=== PATIENT | female | born 1950 | race Caucasian/White ===

== ENCOUNTER → 2024-04-14 09:55 | Outpatient (REF) | payer OTHER, SELFPAY | LOC: HWWDC 09:55 | PROVIDERS: ATTENDING PHYSICIAN Nurse Practitioner Adult Health | DX: Z78.0 Asymptomatic menopausal state (principal); Z12.31 Encounter for screening mammogram for malignant neoplasm of breast | CPT/HCPCS: 77063; 77067; 77080 ==

== ENCOUNTER 2024-12-09 16:53 | Emergency (ER) | payer OTHER, SELFPAY ==
[2024-12-09 17:04] VITALS: BP 123/80
[2024-12-09 19:25] VITALS: BP 129/79
--- NOTE | 2024-12-09 19:32 | EDRN ---
left lateral contusion buttocks and thigh. Pt has increased pain ambulating. Pt can make it 2 steps with walker. Pt has multiple abrasions. Pt alert and oriented. Abrasions nose, L elbow, L knee L le surface hand.
[2024-12-09] MEDS: MOTRIN 600 MG PO (19:45)
[2024-12-09 20:00] VITALS: BP 132/62
[2024-12-09] MEDS: ADACEL 0.5 ML IM (20:27)
[2024-12-09 21:28] VITALS: BP 133/67
[2024-12-09] MEDS: NORCO 5/325 1 TABLET PO ×2 (22:10→22:14)
--- NOTE | 2024-12-10 00:47 | ED.MUSCINJ ---
HPI-Injury
General
Chief Complaint: Fall
Source: patient
Time Seen by Provider: 12/09/24 19:04
Nursing documentation reviewed up to this point in time: agreed with
History of Present Illness-Injury
Is this injury a work related problem?: No
Is pt an associate of [facility]?: No
Initial Injury comments:
Patient was walking dog, dog ran after school bus pulling patient along. SHe fell onto her left side. No LOC. Hit chin on pavement. Complains of pain to her left hip. Unable to get up on own. Helped up by neighbor who then drove her to the ED.
Incident occurred just [employer].
Injury Course
Orders/Labs/Results
Orders:
Orders
12/09/24 17:10
CR Hip - LT w/wo Pel 2-3 Vw* Urgent
Comment:
Reason For Exam: fall, pain
Include a pelvis x-ray?: Yes
12/09/24 19:23
Ibuprofen [Motrin] 600 mg PO NOW STA
Tetanus/Diphth/Acelpertussis [Adacel] 0.5 ml IM .ONCE ONE
12/09/24 19:41
Lower Ext Left wo Contrast CT [CT Lower Ext W/o Iv Cont Lt] Urgent
Comment:
Reason For Exam: fall, attn left hip
12/09/24 22:00
Hydrocodone 5/APAP 325 [[place] 5/325] 1 tablet PO NOW STA
12/09/24 22:08
Hydrocodone 5/APAP 325 [[place] 5/325] 1 tablet PO NOW STA
Update Note
Update Note:
Patient to ED after all while walking dog. Complains of left hip pain. No fracture noted on xray but she continues to struggle wth weight bearing, Sent fo CT of hip which revealed nondisplaced intra articular fracture of the left pubo-acetabular
junction and fx of left inferior pubic ramis. Dr. Martin notified of CT findings. Ok for discharge with walker, toe touch weight bearing LLE x 4 weeks. SHe is able to ambulate safely with walker. Will discharge home and she will follow up in
office with Dr. Martin.
ED Attending Note
-
Portions of this chart may have been created with voice recognition software.� Occasional wrong word or��sound alike� substitutions may have occurred due to the inherent limitations of voice recognition software.
Discharge Plan
Departure
Patient Disposition: Home (Routine Discharge)
Date of Disposition: 12/09/24
Time of Disposition: 22:00
Patient with high blood pressure during this ER visit?: No
Condition: Good
Covid-19: Not Applicable
Discharge Problem:
Fracture of superior pubic ramus, Closed fracture of inferior pubic ramus
Instructions: Pelvic fracture, Ibuprofen, Cold therapy for pain
Prescriptions:
New
hydrocodone-acetaminophen 5-325 mg tablet
1 tab PO Q4H PRN (Reason: Pain) Qty: 20 0RF
No Action
atorvastatin 10 MG tablet
10 mg PO DAILY
Restasis 0.05% Ophthalmic Emulsion:
1 DROP BID
Vitamin D
1,000 0 unit PO DAILY
Referrals:
Jacquelyn May MD [Family Provider] -
Andrew Martin MD [Active] - Call in 1-3 days for appt
Activity Restrictions/Additional Instructions:
Take 400mg ibuprofen every 6 hours as needed for pain. Take pain medication in between doses of ibuprofen if needed.
Interventions
Interventions:
*Risk Screen - Suicide Last Done: 12/09/24 17:04
*General Assessment Last Done: 12/09/24 17:04
*Neglect/Abuse Screening Last Done: 12/09/24 17:04
*ED- Fall Risk Assessment Last Done: 12/09/24 19:30
*ED COVID-19 Vaccine History Last Done: 12/09/24 17:04
*Nursing Disposition Last Done: 12/09/24 22:41
ED-Musculoskeletal Assessment Last Done: 12/09/24 19:30
ED- Neurological Assessment Last Done: 12/09/24 19:30
ED-Skin Assessment Last Done: 12/09/24 19:37
Discharge Date and Time
Discharge Date/Time: 12/09/24 22:43
Print Language: BERMUDIAN
== END 2024-12-09 22:43 | disposition home or self-care (01) ==
LOC: EMR 16:53
PROVIDERS: EMERGENCY PHYSICIAN Student in an Organized Health Care Education/Training Program; FAMILY PHYSICIAN Internal Medicine Geriatric Medicine
DX: S32.512A Fracture of superior rim of left pubis, initial encounter for closed fracture (principal); S32.592A Other specified fracture of left pubis, initial encounter for closed fracture; W18.39XA Other fall on same level, initial encounter; Y93.K1 Activity, walking an animal; Z23 Encounter for immunization
CPT/HCPCS: 90471; 99284; 73502; 73700; 90715

== ENCOUNTER → 2025-04-15 09:23 | Outpatient (REF) | payer OTHER, SELFPAY | LOC: HWWDC 09:23 | PROVIDERS: ATTENDING PHYSICIAN Internal Medicine Geriatric Medicine | DX: Z12.31 Encounter for screening mammogram for malignant neoplasm of breast (principal) | CPT/HCPCS: 77063; 77067 ==